=== PATIENT | male | born 1965 | race Caucasian/White ===

== ENCOUNTER 2021-03-30 09:32 | Day surgery (SDC) | payer BC ==
[~2021-03-30 09:32] MED LIST: Midazolam 1 MG/ML 2 ML SDV ONE; Propofol 200 MG/20 ML SDV ONE; fentaNYL 100 MCG/2 ML SDV ONE
[2021-03-30] MEDS ORDERED: Sodium Chloride 0.9% 1,000 ML IV SCH (10:00)
[2021-03-30 13:10] VITALS: BP 123/83; PULSE 59
--- NOTE | 2021-03-30 14:23 | OR ---
DATE OF PROCEDURE: SURGEON: Tim Denton MD PROCEDURE: Colonoscopy. FINDINGS: Rectal polyp, approximately 5 mm, completely removed using cold biopsy forceps. COMPLICATIONS: None. GENERAL PEDIATRICIAN: None. ANESTHESIA: MAC. PREOPERATIVE DIAGNOSIS: Screening colonoscopy. POSTOPERATIVE DIAGNOSIS: Screening colonoscopy. RISKS: Risks, benefits, alternatives, and limitations including but not limited to infection, bleeding, perforation, false positives, false negatives were explained to the patient who wished to proceed. PROCEDURE IN DETAIL: The patient was placed in left lateral decubitus position. Digital rectal exam was performed without abnormality. Scope was introduced and advanced atraumatically to the ileocecal valve. A photo was taken of this. Scope was brought back to the ascending, transverse, descending colon, and retroflexed. Within the rectum, the aforementioned 5 mm polyp was identified and completely removed. No abnormalities were noted aside from this. No diverticulosis. No old or new blood. The patient tolerated the procedure well. Tim Denton MD /[id number]
== END 2021-03-30 12:25 | disposition home or self-care (01) ==
LOC: JP.SDS 09:32
PROVIDERS: ATTEND Surgery
DX: Z12.11 Encounter for screening for malignant neoplasm of colon (principal); K62.1 Rectal polyp; E66.9 Obesity, unspecified; Z86.010 Personal history of colon polyps; Z68.30 Body mass index [BMI] 30.0-30.9, adult
CPT/HCPCS: 45380; J2250; J2704; J3010; J7030

== ENCOUNTER 2023-07-30 19:19 | Emergency (ER) | payer BC ==
[2023-07-30 19:52] VITALS: BP 191/110; PULSE 63
[2023-07-30] MEDS ORDERED: Ketorolac 30 MG/ML SDV IM ONE (20:16)
[2023-07-30] MEDS ORDERED: tiZANidine 2 MG Tab PO SCH (20:30)
== END 2023-07-30 21:12 | disposition home or self-care (01) ==
LOC: JP.ED 19:19
DX: M54.50 Low back pain, unspecified (principal); Z91.09 Other allergy status, other than to drugs and biological substances
CPT/HCPCS: 96372; 99283; A9270; J1885